=== PATIENT | male | born 1955 | race Caucasian/White ===

== ENCOUNTER 2023-07-31 02:31 | Observation (INO) ==
--- NOTE | 2023-07-31 03:04 | Emergency Department Note ---
History of Present Illness General Chief complaint: Abdominal Pain Stated complaint: LWR LFT ABDOMINAL PAIN/TENDERNESS,DISOLORED URINE Time Seen by Provider: 07/31/23 02:44 History of Present Illness Maximum Pain Intensity: 5 This 68-year-old male presents ER complaining of left lower abdominal pain tonight. no history of diverticulitis. He has a history of kidney stones but this feels different. Patient denies chest pain, dyspnea, fever, chills, flank pain, dysuria, or any other medical complaints. Home Medications Medication Instructions Recorded Confirmed Type No Known Home Medications 09/14/20 07/31/23 History Allergies Allergy/AdvReac Type Severity Reaction Status Date / Time No Known Allergies Allergy Verified 07/31/23 03:00 Past Med/Surg History Medical History (Updated 07/31/23 @ 04:36 by Humera Beverly PA-C) Cervicogenic headache currently going to PT for headaches Degenerative cervical disc Kidney stone on left side asymptomatic Jejunitis h/o High cholesterol "borderline" no meds Surgical History History of inguinal hernia repair Rt History of colonoscopy History of dental surgery Family History Brother Cardiac disorder Myocardial infarction Mother Adenocarcinoma of lung Colorectal cancer Grandmother Kidney stones Breast cancer Father Lung disease Aunt Breast cancer Other No family history of adverse response to anesthesia Denies family history of Ovarian cancer Prostate cancer Social History Smoking Status: Former smoker Second Hand Exposure: No; Do You Dip or Chew Tobacco: No; Hx Alcohol Use: No Hx Substance Use: No Preferred Language: Belgian Communication Ability: Effective Visual Impairment: No Limitations Hearing Ability: Normal Bull Bucker Required: No Beliefs That Will Affect Care: None marital status: Current Living Situation: Spouse current occupational status: employed current occupation: Electrical Engineering Feels Safe at Home: Yes Childhood Exposure to Second-Hand Smoke: Yes Diet: regular Dental Care, Regularly: Yes Physical Activity Frequency: 1-2 Times per Week Seatbelt Use: always Assistive Devices: Glasses Review of Systems A total of 10 systems reviewed and were otherwise negative Physical Exam Vital Signs Vital Signs - 24 hr 07/31/23 02:39 07/31/23 02:59 Temperature 36.5 C Temperature Source Oral Pulse Rate 70 68 Pulse Rhythm Regular Respiratory Rate 18 Blood Pressure 141/82 H Blood Pressure Mean 101 Pulse Oximetry 100 99 Oxygen Delivery Method Room Air Room Air Sepsis Recent Fever Within 48 Hours No Sepsis New/Unexplained Change in Mental Status No Sepsis Action Taken by Nursing No Action Required VITALS: Vitals are noted on the nurse's note and reviewed by myself. Vital signs stable. GENERAL: Pleasant gentleman who appears in pain, in no acute distress, nondiaphoretic, well-developed well-nourished. SKIN: Capillary reflex less than 2 seconds. HEENT: Normocephalic. PERRLA. EOMI. Nares patent. Mucous membranes moist. Neck is supple without nuchal rigidity. HEART: Regular rate and rhythm LUNGS: Clear to auscultation bilaterally without wheezes, rales or rhonchi. No retractions or accessory muscle use. ABDOMEN: Positive bowel sounds x 4. Normal tympanic percussion. Soft, tender left lower quadrant, without masses or organomegaly. Galindo sign negative. No guarding or rebound tenderness. no CVA tenderness MUSCULOSKELETAL: No gross musculoskeletal defects. NEURO: Patient was alert and oriented to person place and time. No focal neurological deficits. Course Administered Medications Discontinued Medications Sodium Chloride (Nss) 500 mls @ 999 mls/hr IV .Q31M STA Stop: 07/31/23 03:15 Last Infusion: 07/31/23 03:50 Dose: Infused Documented By: Admin: 07/31/23 03:07 Dose: 999 mls/hr Documented By: KAYLEY Acetaminophen (Ofirmev) 1,000 mg in 100 mls @ 400 mls/hr IV NOW STA Stop: 07/31/23 03:38 Last Infusion: 07/31/23 03:50 Dose: Infused Documented By: Admin: 07/31/23 03:27 Dose: 400 mls/hr Documented By: KAYLEY Ioversol (Optiray 320 500ml) 100 ml IV ONCE ONE Stop: 07/31/23 03:18 Last Admin: 07/31/23 03:18 Dose: 88 ml Documented By: ANASTASIIA Ketorolac Tromethamine (Ketorolac Tromethamine 15 Mg/Ml Vial) 10 mg IV NOW STA Stop: 07/31/23 02:46 Last Admin: 07/31/23 03:50 Dose: Not Given Documented By: [facility] Ketorolac Tromethamine (Ketorolac Tromethamine 15 Mg/Ml Vial) 10 mg IV NOW STA Stop: 07/31/23 04:33 Last Admin: 07/31/23 04:42 Dose: 10 mg Documented By: [facility] Morphine Sulfate (Morphine Sulfate 4 Mg/Ml 1 Ml Carp\\Vial) 4 mg IV NOW STA Stop: 07/31/23 02:59 Last Admin: 07/31/23 03:06 Dose: 4 mg Documented By: [facility] Morphine Sulfate (Morphine Sulfate 4 Mg/Ml 1 Ml Carp\\Vial) 4 mg IV NOW STA Stop: 07/31/23 03:25 Last Admin: 07/31/23 03:27 Dose: 4 mg Documented By: [facility] Ondansetron HCl (Ondansetron Inj 2 Mg/Ml 2 Ml Vial) 4 mg IV NOW STA Stop: 07/31/23 02:46 Last Admin: 07/31/23 03:06 Dose: 4 mg Documented By: [facility] Tamsulosin HCl (Tamsulosin Hcl 0.4 Mg Cap) 0.4 mg PO NOW ONE Stop: 07/31/23 04:33 Last Admin: 07/31/23 04:42 Dose: 0.4 mg Documented By: [facility] Medical Decision Making Medical Records Attestation: I reviewed the patient's medical records. Home Medications Current Medication List: was personally reviewed by me Laboratory Data Attestation: I reviewed the patient's lab results. 07/31/23 02:56 07/31/23 02:56 Lab Results 07/31/23 07/31/23 07/31/23 Range/Units 02:56 03:05 Unknown WBC 7.89 (4.8-10.8) K/ul RBC 4.69 L (4.70-6.10) M/uL Hgb 14.9 (14.0-18.0) g/dl POC Hgb 14.3 (14.0-18.0) g/dl Hct 43.3 (42.0-52.0) % POC Hct 42 (42-52) % MCV 92.3 (80.0-100.0) fL MCH 31.8 (25.0-34.0) pg MCHC 34.4 (32.0-36.0) g/dL RDW Std Deviation 41.6 (36.4-46.3) fL RDW Coeff of Patrick 12.2 (11.5-14.5) % Plt Count 243 (130-400) K/uL MPV 9.0 L (9.4-12.4) fL Immature Gran % (Auto) 0.3 % Neut % (Auto) 75.5 % Lymph % (Auto) 16.7 % [place] % (Auto) 5.2 % Eos % (Auto) 2.0 % Baso % (Auto) 0.3 % Neut # (Auto) 5.96 (1.40-6.50) K/uL Lymph # (Auto) 1.32 (1.20-3.40) K/uL [place] # (Auto) 0.41 (0.11-0.59) K/uL Eos # (Auto) 0.16 (0.00-0.50) K/uL Baso # (Auto) 0.02 (0.00-0.20) K/uL Immature Gran # (Auto) 0.02 (0.01-0.20) K/uL POC Sodium 140 (135-144) mmol/L Sodium 139 (136-145) mmol/L POC Potassium 4.0 (3.3-5.0) mmol/L Potassium 4.3 (3.5-5.1) mmol/L POC Chloride 101 (101-112) mmol/L Chloride 103 (98-107) mmol/L Carbon Dioxide 29 (21-32) mmol/L POC Total CO2 29 (24-31) mmol/L Anion Gap 7 (3-11) POC Anion Gap 15.0 L (16-25) mmol/L POC BUN 17 (7-18) mg/dl BUN 18 (6-23) mg/dl Creatinine 1.13 (0.6-1.4) mg/dl POC Creatinine 1.0 (0.6-1.3) mg/dl Est Cr Clr Drug Dosing 56.5 ml/min Est GFR ( Amer) 77.0 ml/min Est GFR (Non-Af Amer) 66.4 ml/min BUN/Creatinine Ratio 15.9 (10-20) Glucose 136 H (70-99(Fasting)) mg/dl POC Glucose (other) 128 H (70-99) mg/dl Lactate 1.0 (0.4-2.0) mmol/L Calcium 9.5 (8.6-10.3) mg/dl POC Ioniz Calcium Woodrow 1.17 (1.12-1.32) mmol/l Total Bilirubin 0.6 (0.2-1.0) mg/dl AST 21 (13-39) U/L ALT 15 (7-52) U/L Alkaline Phosphatase 75 (34-104) U/L Total Protein 7.3 (6.0-8.3) gm/dl Albumin 4.5 (3.4-5.0) gm/dl Globulin 2.8 (2.5-4.0) gm/dl Albumin/Globulin Ratio 1.6 (0.9-2) Lipase 32 (11-82) U/L Urine Color Yellow Urine Appearance Clear (Clear) Urine pH 7.5 (4.5-7.5) Ur Specific [place] 1.015 (1.000-1.030) Urine Protein Negative (Negative) Urine Glucose (UA) Negative (Negative) Urine Ketones Negative (Negative) Urine Blood 3+ H (Negative) Urine Nitrite Negative (Negative) Urine Bilirubin Negative (Negative) Urine Urobilinogen Negative (Negative) Ur Leukocyte Esterase Negative (Negative) Urine WBC (Auto) 0-5 (0-5) /hpf Urine RBC (Auto) >20 H (0-2) /hpf U Hyaline Cast (Auto) 0-2 (0-2) /lpf U Epithel Cells (Auto) 0-2 (0-2) /hpf Urine Bacteria (Auto) None Seen (None Seen) Imaging Data Attestation: I personally reviewed and interpreted this imaging study as follows: Radiologist's Impression: Abdomen/Pelvis CT 07/31/23 02:45 Exam(s): CT ABDOMEN + PELVIS With Contrast IV Amt: 88 ML OPTIRAY 320 EXAM: CT Abdomen and Pelvis With Intravenous Contrast CLINICAL HISTORY: Reason for exam: llq pain. TECHNIQUE: Axial computed tomography images of the abdomen and pelvis with intravenous contrast. Automated exposure control was utilized for the study. A dose lowering technique was utilized adhering to the principles of ALARA. CONTRAST: Patient received 88 ML OPTIRAY 320 of IV contrast COMPARISON: No relevant prior studies available. FINDINGS: Lung bases: Unremarkable. No mass. No consolidation. Mediastinum: Small esophageal hiatal hernia. ABDOMEN: Liver: Low attenuation focus in the liver which may be due to a cyst but is too small to characterize. Gallbladder and bile ducts: Unremarkable. No calcified stones. No ductal dilation. Pancreas: Unremarkable. No mass. No ductal dilation. Spleen: Unremarkable. No splenomegaly. Adrenals: Unremarkable. No mass. Kidneys and ureters: Obstructive 7 x 5 x 8 mm calculus within the left mid ureter (noted on maintenance advisor imaging) with upstream mild left renal hydronephrosis with perinephric and periureteral stranding. Additionally, there is a delayed left nephrogram, also likely related to obstruction. Nonobstructive calculi within the kidneys bilaterally, the largest within the inferior pole of the left kidney measuring up to 7 mm. Stomach and bowel: Colonic diverticulosis. No evidence of diverticulitis. No evidence of bowel obstruction. PELVIS: Appendix: No findings to suggest acute appendicitis. Bladder: Unremarkable. No mass. Reproductive: Unremarkable as visualized. ABDOMEN and PELVIS: Intraperitoneal space: Unremarkable. No free air. No significant fluid collection. Bones/joints: Degenerative changes in the spine. No acute fracture. No dislocation. Soft tissues: Umbilical hernia containing fat. Vasculature: Atherosclerotic disease. No abdominal aortic aneurysm. Lymph nodes: Unremarkable. No enlarged lymph nodes. IMPRESSION: 1. Obstructive 7 x 5 x 8 mm calculus within the left mid ureter (noted on maintenance advisor imaging) with upstream mild left renal hydronephrosis with perinephric and periureteral stranding. Additionally, there is a delayed left nephrogram, also likely related to obstruction. 2. Nonobstructive calculi within the kidneys bilaterally, the largest within the inferior pole of the left kidney measuring up to 7 mm. 3. No other acute findings. 4. Incidental findings as described. Electronically signed by: Zi Tristan MD 07/31/23 04:37 AM [facility] Narrative Prior records/ancillary studies reviewed. Triage Nursing notes reviewed. Additional history obtained from nursing. The patient's history was concerning for abdominal pain. Differential diagnosis: Etiologies such as appendicitis, diverticulitis, PUD, biliary pathology, UTI, pancreatitis, obstruction, mesenteric ischemia, aortic pathology, infections, inflammatory bowel disease, renal colic, as well as others were entertained. Physical examination findings: As above. ER treatment provided: An order was placed for continuous cardiac monitoring. The monitor shows a rate of 60-100 with a sinus rhythm per my Independent interpretation. Morphine, Zofran, IV fluids, Tylenol, Toradol, Flomax On reassessment the patient felt better. Diagnostics interpreted by me: The labs Independently Interpreted by myself revealed urine with hematuria without signs of infection. Mild hyperglycemia without DKA Stable H&H Imaging studies: CT as above Consultation: A consultation was placed with the hospitalist. The case was discussed and diagnostics were reviewed. The patient was evaluated in the ER for further treatment. Urology was consulted and the midlevel, Mike, did evaluate the patient. Exam and history seem consistent with left ureterolithiasis with renal colic. Patient still in severe amount of pain. He required multiple rounds of pain medication. He was given Flomax Toradol Tylenol and morphine and Zofran. He does have a rather large stone. Medicine urology were consulted. Patient be admitted to the medical service. By the evaluation outlined above emergent etiologies such as appendicitis, diverticulitis, PUD, biliary pathology, UTI, pancreatitis, obstruction, mesenteric ischemia, aortic pathology, infections, inflammatory bowel disease, as well as others were deemed relatively unlikely. The pt informed about the findings as listed above. All questions were answered and pleased with the treatment. The chart was completed utilizing [employer]It Speech voice recognition software. Grammatical errors, random word insertions, pronoun errors, and incomplete sentences are an occassional consequence of this system due to software limitations, ambient noise, and hardware issues. Any formal questions or concerns about the content, text, or information contained within the body of this dictation should be directly addressed to the physician elementary assistant teacher for clarification. Impression & Plan Ureterolithiasis, Renal colic on left side Discharge Plan Visit Data Chief Complaint: Abdominal Pain Stated Complaint: LWR LFT ABDOMINAL PAIN/TENDERNESS,DISOLORED URINE ED Provider: Shad Varghese ED Midlevel Provider: Humera Beverly Discharge Problem: Ureterolithiasis, Renal colic on left side Patient Disposition: Admitted As Inpatient Condition: Good Forms Stand Alone Forms: My Sxbbm Prescriptions Prescriptions: No Action No Known Home Medications Referrals Referrals: Salvador Rutledge DO [Primary Care Provider] -
[2023-07-31] MEDS: ONDANSETRON INJ 2 MG/ML 2 ML VIAL IV STA (03:06)
[2023-07-31] MEDS: MoRPHine SULFATE 4 MG/ML 1 ML CARP\\VIAL IV STA ×2 (03:06→03:27)
[2023-07-31] MEDS: SODIUM CHLORIDE 0.9% 500 ML IV STA (03:07)
[2023-07-31 03:18] LABS: Basophils # (auto) 0.02 K/uL (0.00-0.20); Basophils % (auto) 0.3 %; Eosinophils # (auto) 0.16 K/uL (0.00-0.50); Hematocrit (blood only) 43.3 % (42.0-52.0); Hemoglobin 14.9 g/dl (14.0-18.0); Immature Granulocytes # (auto) 0.02 K/uL (0.01-0.20); Immature Granulocytes % (auto) 0.3 %; Lymphocytes # (auto) 1.32 K/uL (1.20-3.40); Lymphocytes % (auto) 16.7 %; Mean Corpuscular Hemoglobin 31.8 pg (25.0-34.0); Mean Corpuscular Hgb Conc 34.4 g/dL (32.0-36.0); Mean Corpuscular Volume 92.3 fL (80.0-100.0); Monocytes # (auto) 0.41 K/uL (0.11-0.59); Monocytes % (auto) 5.2 %; Neutrophils # (auto) 5.96 K/uL (1.40-6.50); Neutrophils % (auto) 75.5 %; Platelet Count 243 K/uL (130-400); RDW Coefficient of Variation 12.2 % (11.5-14.5); RDW Standard Deviation 41.6 fL (36.4-46.3); Red Blood Count 4.69 M/uL (4.70-6.10); White Blood Count 7.89 K/ul (4.8-10.8)
[2023-07-31] MEDS: OPTIRAY 320 500ml IV ONE (03:18)
[2023-07-31 03:19] LABS: iSTAT Hemoglobin 14.3 g/dl (14.0-18.0); iSTAT Ionized Calcium 1.17 mmol/l (1.12-1.32)
[2023-07-31] MEDS: ACETAMINOPHEN 1,000 MG/100 ML VIAL IV STA (03:27)
[2023-07-31 03:33] LABS: Albumin Globulin Ratio 1.6 (0.9-2); Albumin Level 4.5 gm/dl (3.4-5.0); BUN Creatinine Ratio 15.9 (10-20); Bilirubin,Total 0.6 mg/dl (0.2-1.0); Calcium 9.5 mg/dl (8.6-10.3); Creatinine Clr Calc Pharmacy 56.5 ml/min; Est GFR (Non-African American) 66.4 ml/min; Globulin 2.8 gm/dl (2.5-4.0); Potassium 4.3 mmol/L (3.5-5.1); Total Protein 7.3 gm/dl (6.0-8.3)
[2023-07-31] MEDS: KETOROLAC TROMETHAMINE 15 MG/ML VIAL IV STA ×2 (03:50→04:42)
[2023-07-31 03:58] LABS: Appearance Urine Clear (Clear); Bacteria Urine Automated None Seen (None Seen); Bilirubin Urine Negative (Negative); Blood Urine 3+ (Negative); Cast Urine Automated 0-2 /lpf (0-2); Color Urine Yellow; Epithelial Cell Urine Auto 0-2 /hpf (0-2); Glucose Urine UA Negative (Negative); Ketones Urine Negative (Negative); Leukocyte Esterase Urine Negative (Negative); Nitrite Urine Negative (Negative); Protein Urine Negative (Negative); RBC Urine Automated >20 /hpf (0-2); Specific Gravity Urine 1.015 (1.000-1.030); Urobilinogen Urine Negative (Negative); WBC Urine Automated 0-5 /hpf (0-5); pH Urine 7.5 (4.5-7.5)
--- NOTE | 2023-07-31 04:38 | CT Scan Report ---
Exam(s): CT ABDOMEN + PELVIS With Contrast IV Amt: 88 ML OPTIRAY 320 EXAM: CT Abdomen and Pelvis With Intravenous Contrast CLINICAL HISTORY: Reason for exam: llq pain. TECHNIQUE: Axial computed tomography images of the abdomen and pelvis with intravenous contrast. Automated exposure control was utilized for the study. A dose lowering technique was utilized adhering to the principles of ALARA. CONTRAST: Patient received 88 ML OPTIRAY 320 of IV contrast COMPARISON: No relevant prior studies available. FINDINGS: Lung bases: Unremarkable. No mass. No consolidation. Mediastinum: Small esophageal hiatal hernia. ABDOMEN: Liver: Low attenuation focus in the liver which may be due to a cyst but is too small to characterize. Gallbladder and bile ducts: Unremarkable. No calcified stones. No ductal dilation. Pancreas: Unremarkable. No mass. No ductal dilation. Spleen: Unremarkable. No splenomegaly. Adrenals: Unremarkable. No mass. Kidneys and ureters: Obstructive 7 x 5 x 8 mm calculus within the left mid ureter (noted on producer director imaging) with upstream mild left renal hydronephrosis with perinephric and periureteral stranding. Additionally, there is a delayed left nephrogram, also likely related to obstruction. Nonobstructive calculi within the kidneys bilaterally, the largest within the inferior pole of the left kidney measuring up to 7 mm. Stomach and bowel: Colonic diverticulosis. No evidence of diverticulitis. No evidence of bowel obstruction. PELVIS: Appendix: No findings to suggest acute appendicitis. Bladder: Unremarkable. No mass. Reproductive: Unremarkable as visualized. ABDOMEN and PELVIS: Intraperitoneal space: Unremarkable. No free air. No significant fluid collection. Bones/joints: Degenerative changes in the spine. No acute fracture. No dislocation. Soft tissues: Umbilical hernia containing fat. Vasculature: Atherosclerotic disease. No abdominal aortic aneurysm. Lymph nodes: Unremarkable. No enlarged lymph nodes. IMPRESSION: 1. Obstructive 7 x 5 x 8 mm calculus within the left mid ureter (noted on producer director imaging) with upstream mild left renal hydronephrosis with perinephric and periureteral stranding. Additionally, there is a delayed left nephrogram, also likely related to obstruction. 2. Nonobstructive calculi within the kidneys bilaterally, the largest within the inferior pole of the left kidney measuring up to 7 mm. 3. No other acute findings. 4. Incidental findings as described. Electronically signed by: Zi Tristan MD 07/31/23 04:37 AM
[2023-07-31] MEDS: TAMSULOSIN HCL 0.4 MG CAP PO ONE (04:42)
--- NOTE | 2023-07-31 04:48 | Emergency Department Note ---
ED Visit Note I was consulted by the Advanced Practice Provider. I personally made/approved the management plan and take responsibility for the patient management. I performed a substantive portion of the visit. This includes the aspects of: -History/Physical -MDM .
--- NOTE | 2023-07-31 04:51 | History & Physical Report ---
Date of Service July 31, 2023 Assessment & Plan (1) Ureterolithiasis: Plan: Pt is a 68 yo male with PMH of headaches, asymptomatic nephrolithiasis, and elevated cholesterol (not on medication) presenting d/t left sided abdominal pain. Left ureterolithiasis - lab work significant for no leukocytosis, CMP WNL, lactic acid 1.0, lipase 32 - CTAP showed left obstructive mid ureter stones ([id number]) with mild hydronephrosis - UA showed 3+ blood, >20 RBCs consistent with ureterolithiasis; no signs of urine infection - urology consulted; will continue conservative management until AM team evaluation - pain control; tylenol 1000mg q8hr scheduled, toradol 15 mg q6hr PRN, dilaudid 0.5mg q4hr for 5-7/10 pain, dilaudid 1 mg q4hr for 8-10/10 pain; nausea control w/ zofran PRN - keep NPO, continue tamsulosin 0.4mg to facilitate stone passage; however, d/t size of stone, pt may require intervention which will be discussed further by urology Hx of high cholesterol - no home medications Diet: NPO until urology eval VTE ppx: will defer upon admission pending possible procedure Code: full Dispo: admit to med/surg (2) High cholesterol: History of Present Illness Chief Complaint: left sided abdominal pain Primary Care Provider: Salvador Rutledge DO Pt is a 68 yo male with PMH of headaches, asymptomatic nephrolithiasis, and elevated cholesterol (not on medication) presenting d/t left sided abdominal pain. Pt states he has a history of left sided abdominal pain dating back many years but this pain feel different in quality and location. He has known that he has kidney stones, but they have never caused his problems aside from one episode where he had acute pain and it was presumed he passed a stone (however, this was not confirmed). Pt states this current episode began Sunday morning where he felt a slight pain in this abdomen. However, he went to work as normal. He came home and noticed a blood tinge to his urine which is abnormal for him. He was able to eat dinner and decided to relax the rest of the night because he hadn't felt well all day. Last evening, his pain worsened to the point of not being able to get comfortable which prompted him to come to the ER. In the ER, pt was given 1L NS, 4 mg zofran x1, toradol 10 mg x1, morphine 4 mg IV x2, tamsulosin 0.4mg x1, and 1000mg tylenol x1. His symptoms were much improved after these medications. Allergies Allergy/AdvReac Type Severity Reaction Status Date / Time No Known Allergies Allergy Verified 07/31/23 03:00 Home Medications Medication Instructions Recorded Confirmed Type No Known Home Medications 09/14/20 07/31/23 History Past Med/Surg History Medical History (Updated 07/31/23 @ 15:24 by Palmer Pollard MD) Cervicogenic headache currently going to PT for headaches Degenerative cervical disc Kidney stone on left side asymptomatic Jejunitis h/o High cholesterol "borderline" no meds Surgical History History of inguinal hernia repair Rt History of colonoscopy History of dental surgery Family History Brother Cardiac disorder Myocardial infarction Mother Adenocarcinoma of lung Colorectal cancer Grandmother Kidney stones Breast cancer Father Lung disease Aunt Breast cancer Other No family history of adverse response to anesthesia Denies family history of Ovarian cancer Prostate cancer Social History Smoking Status: Never smoker Second Hand Exposure: No; Do You Dip or Chew Tobacco: No; Hx Alcohol Use: No Hx Substance Use: No Preferred Language: Welsh Communication Ability: Effective Visual Impairment: No Limitations Hearing Ability: Normal Wool Cleaner Required: No Beliefs That Will Affect Care: Taoism Taoism Beliefs: DENOMINATIONAL ANGLICAN marital status: Current Living Situation: Spouse current occupational status: employed current occupation: [email or web address] Feels Safe at Home: Yes Safety Concerns: Feels Safe At This Time Childhood Exposure to Second-Hand Smoke: Yes Diet: regular Dental Care, Regularly: Yes Physical Activity Frequency: 1-2 Times per Week Seatbelt Use: always Assistive Devices: Glasses Review of Systems Review of Systems: As per HPI Physical Exam Constitutional: NAD, vitals WNL. Respiratory: CTA bilaterally. Non labored breathing. No rhonchi, wheezing, or crackles. Cardiovascular: RRR. No murmurs noted. No LE edema. Gastrointestinal (Abdomen): Nontender, nondistended, +BS. No masses noted. Skin: No rashes or skin lesions noted. Neurologic: Sensation grossly intact. No FND appreciated. Psychiatric: Speech of normal pace and content. Mood and affect congruent. Results & Data Results & Data Vital Signs (Past 12 Hours) Vital Signs Temp Pulse Resp BP Pulse Ox O2 Del Method 07/31/23 02:59 68 18 99 Room Air 07/31/23 02:39 36.5 C 70 141/82 H 100 Room Air Supervising Physician Co-Signing Physician Notes Attending addendum: I have physically seen this patient, have supervised the medical residents activities, and agree with the H&P unless as otherwise noted. Assessment and Plan: Left mid ureter obstructing stone, 5 x 7 x 8 mm/mild left hydronephrosis- Follow urine culture sensitivity Empiric ceftriaxone NPO IV fluids as noted Pain medication with Tylenol, Toradol and Dilaudid as noted Zofran 4 mg IV every 6 hours as needed Tamsulosin 0.4 mg p.o. daily Consult urology Resident Activity Tracking Resident Involvement: Resident Care Provided Care Provided: Adult [facility]
--- NOTE | 2023-07-31 04:53 | Urology Consultation ---
Date of Consultation July 31, 2023 Assessment & Plan (1) Renal colic on left side: I discussed with the treating clinician emergency department the patient is being admitted on the hospitalist service. From a urologic perspective we recommend the following: Provide analgesics Provide antiemetics Provide IV fluid for hydration Flomax has been initiated for expulsive therapy and this should continue At the present time there is no leukocytosis or evidence of urinary tract infection on urinalysis and therefore antibiotics are not required at this time I discussed with the patient that with the size of his kidney stone is less likely to pass. Will monitor the patient for the present time and he will be evaluated by our [facility] urology team and a determination will be made if patient requires cystoscopy. Please keep patient n.p.o. until evaluated by [facility] urology team Additional recommendations be forthcoming based on his clinical course as it unfolds History of Present Illness Reason for Consultation: Nephrolithiasis History of Present Illness This is a 68-year-old male who presented the emergency department secondary to approximately 12 hours of left flank pain. Patient said that the pain originated in the left flank and has now began to radiate to the front of his abdomen. He has had nausea without vomiting. He denies any fevers, shakes, or chills. The patient denies any dysuria or urinary frequency but notes that he may have seen a small amount of blood in his urine. He notes that he does have a history of kidney stones in the past but has never had any procedures such as cystoscopy or lithotripsy. Since arrival to the emergency department the patient has had labs and imaging which I independently reviewed. A CT scan of the abdomen pelvis showed that he had a 7 x 5 x 8 mm kidney stone in the left mid ureter resulting in obstruction/hydronephrosis. There is some perinephric and periureteral stranding. The patient was also noted to have a nonobstructive 7 mm nonobstructive kidney stone in the left kidney. Labs included CBC her white blood cell count, hemoglobin, hematocrit, and platelet count were all normal. Chemistry profile showed sodium and potassium along with the BUN and creatinine were normal. Urinalysis did show 3+ blood but was otherwise not indicative of infection. At the time of my interview the patient was resting comfortably in bed and he was in no distress. Allergies Allergy/AdvReac Type Severity Reaction Status Date / Time No Known Allergies Allergy Verified 07/31/23 03:00 Home Medications Medication Instructions Recorded Confirmed Type No Known Home Medications 09/14/20 07/31/23 History Patient History Medical History Cervicogenic headache currently going to PT for headaches Degenerative cervical disc Kidney stone on left side asymptomatic Jejunitis h/o High cholesterol "borderline" no meds Surgical History History of inguinal hernia repair Rt History of colonoscopy History of dental surgery Family History Brother Cardiac disorder Myocardial infarction Mother Adenocarcinoma of lung Colorectal cancer Grandmother Kidney stones Breast cancer Father Lung disease Aunt Breast cancer Other No family history of adverse response to anesthesia Denies family history of Ovarian cancer Prostate cancer Social History Smoking Status: Former smoker Second Hand Exposure: No; Do You Dip or Chew Tobacco: No; Hx Alcohol Use: No Hx Substance Use: No Preferred Language: Bulgarian Communication Ability: Effective Visual Impairment: No Limitations Hearing Ability: Normal Home Management Supervisor Required: No Beliefs That Will Affect Care: None marital status: Current Living Situation: Spouse current occupational status: employed current occupation: Electrical Engineering Feels Safe at Home: Yes Childhood Exposure to Second-Hand Smoke: Yes Diet: regular Dental Care, Regularly: Yes Physical Activity Frequency: 1-2 Times per Week Seatbelt Use: always Assistive Devices: Glasses Review of Systems Constitutional: no fever and no chills Eyes: + corrective lenses Ear, Nose, Mouth, Throat: no hearing loss Respiratory: no cough and no dyspnea Cardiovascular: no chest pain Gastrointestinal: + abdominal pain (Radiating from left fl ank) and + nausea; no vomiting Genitourinary: + as per Subjective / HPI Musculoskeletal: + back pain (Left flank) Integumentary: no rash Neurologic: no localized weakness Physical Exam Constitutional: WD/WN, vitals as above Eyes: Wears glasses ENMT: Ears: no hearing impairment and no external ear abnormality Mouth: no oropharynx abnormality Neck: trachea midline Respiratory: normal respiratory effort; no respiratory distress and no labored breathing Cardiovascular: Rate/Rhythm: regular rate and regular rhythm Gastrointestinal (Abdomen): Abdomen is soft, nonrigid, nondistended. The patient did have some slight tenderness to palpation in the left hypogastric and left lower quadrants. Musculoskeletal: No calf tenderness Skin: no rashes Neurologic: moves all extremities Psychiatric: A+Ox3, euthymic affect Genitourinary: No CVA tenderness with percussion on the right side. Minimal CVA tenderness to percussion on the left Results & Data Vital Signs (Past 12 Hours) Vital Signs Temp Pulse Resp BP Pulse Ox O2 Del Method 07/31/23 02:59 68 18 99 Room Air 07/31/23 02:39 36.5 C 70 141/82 H 100 Room Air PG Care Time/CCT Total # of Minutes Spent Total Time Spent with Patient: Total time spent is greater than 50% in coordination of care (as documented) at patient's floor/unit and/or counseling patient: Coding Level of Care Code 09817 INT INP/OBS CARE 3/75MIN Diagnoses Renal colic on left side N23
[2023-07-31] MEDS ORDERED: ONDANSETRON INJ 2 MG/ML 2 ML VIAL IV PRN ×2 (05:07→13:55)
[2023-07-31] MEDS ORDERED: MELATONIN 3 MG TAB PO PRN (05:07)
[2023-07-31] MEDS ORDERED: KETOROLAC TROMETHAMINE 15 MG/ML VIAL IV PRN (06:24)
[2023-07-31] MEDS ORDERED: HYDROmorphone INJ 1 MG/ML SYRINGE IV PRN (06:24)
[2023-07-31] MEDS ORDERED: HYDROmorphone INJ 0.5 MG/0.5 ML SYR IV PRN (06:24)
[2023-07-31] MEDS: LACTATED RINGER'S 1,000 ML IV SCH (06:37)
--- NOTE | 2023-07-31 08:43 | Urology Progress Note ---
Date of Service July 31, 2023 Assessment & Plan (1) Renal colic on left side: (2) Ureterolithiasis: (3) Nephrolithiasis: Plan 68yo/M admitted with intractable flank pain secondary to an obstructing 8mm left ureteral stone - Afebrile and hemodynamically stable. - Labs today - No leukocytosis and normal renal function. - UA not suggestive of infection. - Discussed options for acute stone management with cystoscopy, stent placement, possible stone treatment. Ureteral stents were discussed as well as postoperative issues and pain management. He is aware a second procedure may be needed for stone treatment. Expected clinical course reviewed. All questions were answered. - Plan to proceed to OR today for cystoscopy, left retrograde pyelogram, left ureteral stent placement, possible ureteroscopy, laser lithotripsy/stone treatment. - Risks and benefits to be reviewed with patient by Dr. Freed. OR notified. - Keep NPO. - Continue supportive care and pain management - Will cover with IV Cipro preoperatively. - Urology will follow. Admission and Anticipated Discharge Date Admission Date: July 31, 2023 Subjective Pt examined at bedside this AM. Awake, resting in bed on arrival. No acute distress. Pain well controlled at present. Denies f/c/n/v. Voiding without issue. Denies hematuria and dysuria. Has been NPO. Review of Systems Constitutional: as per Subjective / HPI Genitourinary: + as per Subjective / HPI Physical Exam Constitutional: no acute distress Respiratory: no respiratory distress and no labored breathing Skin: No visible rashes or lesions to exposed skin areas Neurologic: moves all extremities and awake Psychiatric: A+Ox3, euthymic affect Results & Data Vital Signs (Past 12 Hours) Vital Signs Temp Pulse Pulse Resp BP BP Pulse Ox 07/31/23 07:12 36.9 C 67 18 112/70 97 07/31/23 05:46 36.9 C 77 16 135/76 97 07/31/23 02:59 68 18 99 07/31/23 02:39 36.5 C 70 141/82 H 100 O2 Del Method 07/31/23 07:12 Room Air 07/31/23 05:46 Room Air 07/31/23 02:59 Room Air 07/31/23 02:39 Room Air PG Care Time/CCT Total # of Minutes Spent Total Time Spent with Patient: Total time spent is greater than 50% in coordination of care (as documented) at patient's floor/unit and/or counseling patient: Coding Level of Care Code 39385 SUB INP/OBS CARE 2MIN Diagnoses Renal colic on left side N23 Ureterolithiasis N20.1 Nephrolithiasis N20.0
[2023-07-31] MEDS: ACETAMINOPHEN 500 MG TAB PO SCH (11:13)
[2023-07-31] MEDS ORDERED: LIDOCAINE 2% 2 ML VIAL/AMP(20MG/ML) INFIL ONE (13:43)
[2023-07-31] MEDS ORDERED: PROPOFOL IV EMULSION 10 MG/ML 20 ML VIAL IV ONE (13:43)
[2023-07-31] MEDS ORDERED: fentaNYL citrate PF 100 MCG/2 ML VIAL ONE (13:43)
[2023-07-31] MEDS ORDERED: ONDANSETRON INJ 2 MG/ML 2 ML VIAL ONE (13:43)
[2023-07-31] MEDS ORDERED: MIDAZOLAM HCL 1 MG/ML 2ML VIAL ONE (13:44)
[2023-07-31] MEDS ORDERED: PROMETHAZINE HCL 6.25 MG in SODIUM CHLORIDE 0.9% 50 ML IV PRN (13:55)
[2023-07-31] MEDS ORDERED: ePHEDrine sulfate 50 MG/ML AMP IV PRN (13:55)
[2023-07-31] MEDS ORDERED: ATROPINE SULFATE 0.1 MG/ML 10ML SYR IV PRN (13:55)
[2023-07-31] MEDS ORDERED: fentaNYL citrate PF 100 MCG/2 ML VIAL IV PRN (13:55)
[2023-07-31] MEDS: CIPROFLOXACIN / D5W 400 MG/200 ML BAG IV SCH (14:36)
--- NOTE | 2023-07-31 15:25 | Hospitalist Progress Note ---
Date of Service July 31, 2023 Assessment & Plan (1) Renal colic on left side: Plan: Due to left ureter calculus. Appreciate urology consultation and recommendations. Cystoscopy will be done today, July 30, with probable stent placement and laser lithotripsy of the stone. He remains on Flomax and IV fluids for now. (2) Hyperlipidemia: Plan: Stable. Continue current medical management Plan Hopeful discharge to home tomorrow, July 31 Admission and Anticipated Discharge Date Admission Date: July 31, 2023 Subjective Alert and oriented. No distress. Urology consultation and recommendations appreciated. He will undergo cystoscopy later today with placement of a stent and possible laser lithotripsy of the left ureter stone. Continue IV fluids and Flomax for now Review of Systems 2 Review of Systems: Constitutional-no fever or chills ENT-no blurred vision, no double vision, no epistaxis, no sore throat Respiratory-no cough, no wheezing, no shortness of breath Cardiac-no palpitations, no chest pain, no syncope GI-no nausea, vomiting, diarrhea, melena, hematochezia. Intermittent left flank pain consistent with ureteral colic -no urinary retention, no urinary incontinence, no dysuria, no hematuria Musculoskeletal-no joint pain, no muscle tenderness Skin-no bruising, no rashes, no pruritus Neuro-no isolated weakness, no paresthesia, no weakness Psych-no depression, no anxiety Physical Exam 2 Physical Exam: General-alert and oriented x3, no fever, no chills HEENT-head atraumatic and normocephalic, pupils equal and reactive to light, extraocular muscles intact Neck-no lymphadenopathy or thyromegaly, trachea midline Chest-clear to auscultation. No rales, wheezing or rhonchi Cardiac-regular rate and rhythm, normal S1 and S2 Abdomen-normal bowel sounds, nontender, no hepatosplenomegaly Extremities-no cyanosis, clubbing, or edema Neuro-cranial nerves II through XII intact, motor and sensory function within normal limits, strength symmetrical, no focal deficits Psych-normal affect, normal mood Results & Data Results & Data Vital Signs (Past 12 Hours) Vital Signs Temp Pulse Pulse Resp BP Pulse Ox O2 Del Method 07/31/23 13:20 36.8 C 70 18 121/64 98 Room Air 07/31/23 07:12 36.9 C 67 18 112/70 97 Room Air 07/31/23 05:46 36.9 C 77 16 135/76 97 Room Air Laboratory Results 07/31/23 02:56 07/31/23 02:56 PG Care Time/CCT Total # of Minutes Spent Total Time Spent with Patient: Total time spent is greater than 50% in coordination of care (as documented) at patient's floor/unit and/or counseling patient: Coding Level of Care Code 02583 SUB INP/OBS CARE 3/50MIN Diagnoses Renal colic on left side N23 Hyperlipidemia E78.5
--- NOTE | 2023-07-31 15:28 | Operative Report ---
PG Post Operative Report Pre & Post Diagnosis Operation Date: 07/31/23 07:00 Pre-Op Diagnosis: LEFT URETEROLITHIASIS Post-Op Diagnosis: LEFT URETEROLITHIASIS I identified the patient and participated in the time-out.: Yes Procedure Operation Date: 07/31/23 07:00 Actual Procedures p Cystoscopy, Left Retrograde Pyelogram, Left ureteral Stent Placement, Uretero scopy, Laser Lithotripsy Stone Treatment(Left) - Ariel Freed MD Surgeon Ariel Freed MD [employer]i Bak[employer] Clerk none Estimated Blood Loss 1 Findings Consistent with Post-Op Diagnosis Specimens Stone for chemical analysis Description of Procedure The patient was identified in the preoperative holding area, appropriate informed consents were reviewed and completed and the patient was transferred to the operative suite. Upon arrival, appropriate antibiotics and anesthesia were administered and the patient was placed in dorsal lithotomy position and prepped and draped in sterile fashion. To begin the case I passed a 21 Slovenian cystoscope with 30 degree lens visual wafer fabrication operator. Inspection revealed a healthy-appearing urethra without any strictures. His prostate is moderately enlarged and his bladder is very healthy in appearance with moderate trabeculation. I turned my attention to the left UO and cannulated with a sensor wire which advanced the kidney without difficulty. I then placed a second wire utilizing a 10 Slovenian double-lumen catheter and used a 10 Slovenian double-lumen to gently dilate the distal ureter. I exchanged the 10 Slovenian double-lumen for a 12/14 x 36 cm ureteral access sheath and I positioned it in the proximal ureter. After advancing the scope through it I immediately encountered a stone in the proximal ureter not impacted into the wall of the ureter but filling the lumen. Utilizing a 200 m fiber I was able to fragment the stone and irrigate the stone fragments out through the access sheath and passed off the table for chemical analysis. I then reentered the access sheath with the scope and advanced into the kidney. I fully formed with full renoscopy and I encountered a relatively large stone in the lower pole as well as some other small fragments. I work my way through the large stone in the lower pole as well as attempted to treat all of the small fragments to sizes that were safe for spontaneous passage. I irrigated a significant amount of the stone debris out of the kidney and other debris should be safe for spontaneous passage. I performed a careful repeat renoscopy before performing an exit ureteroscopy and simultaneously withdrawing the access sheath. There is no ureteral trauma nor any residual ureteral stones. A 6 Slovenian by 26 Demeter double-J stent was placed and the case was concluded. There were no complications. I attest to the content of the Intraoperative Record and any orders documented therein. Any exceptions are noted below.
--- NOTE | 2023-07-31 15:51 | Anesthesiology Progress Note ---
Date of Service July 31, 2023 Anesthesia Post Procedure Vital Signs Vital Signs: Temp Pulse Pulse Pulse Pulse Resp BP 07/31/23 15:40 58 L 16 07/31/23 15:30 64 16 07/31/23 15:24 36.2 C L 63 16 07/31/23 13:20 36.8 C 70 18 07/31/23 07:12 36.9 C 67 18 07/31/23 05:46 36.9 C 77 16 07/31/23 02:59 68 18 07/31/23 02:39 36.5 C 70 141/82 H BP Pulse Ox O2 Del Method O2 Flow Rate 07/31/23 15:40 103/60 100 Oxymask 5 07/31/23 15:30 121/67 100 Oxymask 5 07/31/23 15:24 105/63 99 Oxymask 5 07/31/23 13:20 121/64 98 Room Air 07/31/23 07:12 112/70 97 Room Air 07/31/23 05:46 135/76 97 Room Air 07/31/23 02:59 99 Room Air 07/31/23 02:39 100 Room Air Pain Intensity Left Lower Abdomen: Pain Intensity: 2 Transfer of Care Handoff Completed per policy Notes Mental Status: alert / awake / arousable Patient Amnestic to Procedure: Yes Nausea / Vomiting: adequately controlled Pain: adequately controlled Airway Patency, RR, SpO2: stable & adequate BP & HR: stable & adequate Hydration State: stable & adequate Anesthetic Complications: no major complications apparent
--- NOTE | 2023-07-31 20:33 | Billing Data ---
Date of Service July 31, 2023 Coding Level of Care Code 62097 INT INP/OBS CARE
[2023-08-01 07:28] LABS: BUN Creatinine Ratio 18.8 (10-20); Calcium 8.7 mg/dl (8.6-10.3); Creatinine Clr Calc Pharmacy 63.2 ml/min; Est GFR (African American) 88.2 ml/min; Est GFR (Non-African American) 76.1 ml/min; Potassium 4.2 mmol/L (3.5-5.1)
[2023-08-01 07:43] LABS: Hematocrit (blood only) 35.2 % (42.0-52.0); Hemoglobin 12.3 g/dl (14.0-18.0); Mean Corpuscular Hemoglobin 31.7 pg (25.0-34.0); Mean Corpuscular Hgb Conc 34.9 g/dL (32.0-36.0); Mean Corpuscular Volume 90.7 fL (80.0-100.0); Mean Platelet Volume 9.3 fL (9.4-12.4); Platelet Count 193 K/uL (130-400); RDW Coefficient of Variation 12.3 % (11.5-14.5); RDW Standard Deviation 40.6 fL (36.4-46.3); Red Blood Count 3.88 M/uL (4.70-6.10); White Blood Count 7.28 K/ul (4.8-10.8)
--- NOTE | 2023-08-01 07:58 | Urology Progress Note ---
Date of Service August 01, 2023 Assessment & Plan (1) Renal colic on left side: (2) Ureterolithiasis: (3) Nephrolithiasis: Plan 68yo/M admitted with intractable flank pain secondary to an obstructing 8mm left ureteral stone - POD #1 s/p Cystoscopy, Left Retrograde Pyelogram, Left ureteral Stent Placement, Ureteroscopy, Laser Lithotripsy Stone Treatment - Tolerating the stent with minimal bother. - Afebrile and hemodynamically stable. - Labs today - No leukocytosis and normal renal function. - UA not suggestive of infection. IV Cipro given preoperatively. - Okay for discharge from perspective. - Recommend d/c with course of antibiotics and tamsulosin. - Plan for outpatient follow-up for stent removal as scheduled on 08/03/2023. - Urology will sign-off. Please call with any additional questions or concerns. Admission and Anticipated Discharge Date Admission Date: July 31, 2023 Subjective Pt examined at bedside this AM. No acute distress. Eager to go home. Tolerating the stent with minimal bother. No f/c/n/v. Reports some hematuria and dysuria with voiding as expected. Review of Systems Constitutional: as per Subjective / HPI Genitourinary: + as per Subjective / HPI Physical Exam Constitutional: no acute distress Respiratory: no respiratory distress and no labored breathing Neurologic: moves all extremities and awake Psychiatric: A+Ox3, euthymic affect Results & Data Vital Signs (Past 12 Hours) Vital Signs Temp Pulse Pulse Resp BP Pulse Ox O2 Del Method 08/01/23 07:21 36.8 C 62 16 124/66 96 Room Air 08/01/23 04:00 36.8 C 68 18 125/63 98 Room Air 07/31/23 23:12 37.0 C 72 18 123/67 96 Room Air 07/31/23 21:09 36.8 C 75 18 143/72 H 96 Room Air PG Care Time/CCT Total # of Minutes Spent Total Time Spent with Patient: Total time spent is greater than 50% in coordination of care (as documented) at patient's floor/unit and/or counseling patient: Coding Level of Care Code 57950 SUB INP/OBS CARE 2/35MIN Diagnoses Renal colic on left side N23 Ureterolithiasis N20.1 Nephrolithiasis N20.0
[2023-08-01] MEDS: TAMSULOSIN HCL 0.4 MG CAP PO SCH (08:21)
--- NOTE | 2023-08-01 09:30 | Fluoroscopy Report ---
INTRAOPERATIVE RADIOGRAPH CLINICAL HISTORY: Left ureteral stent placement. Fluoro time: 9 seconds Ka,r: 1.76 mGy FINDINGS: A single spot fluoroscopic view of the left upper abdomen is correlated with abdominal CT p erformed the same day 07/31/2023. The image shows the proximal end of a left ureteral stent in appropr iate position. IMPRESSION: Intraoperative image from a left ureteral stent placement procedure as above. Electronically signed by: Nolan Benavides M.D. 08/01/2023 9:28 AM
--- NOTE | 2023-08-01 11:13 | Discharge Summary ---
Date of Service August 01, 2023 Admission HPI Per Admitting Provider Pt is a 68 yo male with PMH of headaches, asymptomatic nephrolithiasis, and elevated cholesterol (not on medication) presenting d/t left sided abdominal pain. Pt states he has a history of left sided abdominal pain dating back many years but this pain feel different in quality and location. He has known that he has kidney stones, but they have never caused his problems aside from one episode where he had acute pain and it was presumed he passed a stone (however, this was not confirmed). Pt states this current episode began Sunday morning where he felt a slight pain in this abdomen. However, he went to work as normal. He came home and noticed a blood tinge to his urine which is abnormal for him. He was able to eat dinner and decided to relax the rest of the night because he hadn't felt well all day. Last evening, his pain worsened to the point of not being able to get comfortable which prompted him to come to the ER. In the ER, pt was given 1L NS, 4 mg zofran x1, toradol 10 mg x1, morphine 4 mg IV x2, tamsulosin 0.4mg x1, and 1000mg tylenol x1. His symptoms were much improved after these medications. Principal Diagnosis Left ureter calculus and colic, mild left hydronephrosis Discharge Exam General-alert and oriented x3, no fever, no chills HEENT-head atraumatic and normocephalic, pupils equal and reactive to light, extraocular muscles intact Neck-no lymphadenopathy or thyromegaly, trachea midline Chest-clear to auscultation. No rales, wheezing or rhonchi Cardiac-regular rate and rhythm, normal S1 and S2 Abdomen-normal bowel sounds, nontender, no hepatosplenomegaly Extremities-no cyanosis, clubbing, or edema Neuro-cranial nerves II through XII intact, motor and sensory function within no rmal limits, strength symmetrical, no focal deficits Psych-normal affect, normal mood Discharge Data Allergies Allergy/AdvReac Type Severity Reaction Status Date / Time No Known Allergies Allergy Verified 07/31/23 03:00 Consultations 07/31/23 04:42 ED Decision to Admit Stat 07/31/23 05:07 Consult Urology Routine Procedures Performed Operation Date: 07/31/23 07:00 Actual Procedures p Ureteroscopy, Laser Lithotripsy Stone Treatment(Left) - Ariel Freed MD s Cystoscopy, Left Retrograde Pyelogram, Left ureteral Stent Placement,(Left) - Ariel Freed MD Ordered Studies 07/31/23 FL KUB Routine 07/31/23 02:45 CT abd pelvis IV con only Stat Hospital Course (1) Renal colic on left side: Due to left ureter calculus. Appreciate urology consultation and recommendations. Cystoscopy was completed on July 30, with stent placement and laser lithotripsy of the stone. Treated with Flomax and IV fluids while hospitalized. Will continue Flomax and Cipro at discharge. He will follow-up with urology later this week. (2) Hyperlipidemia: Stable. Continue current medical management Plan Home today, July 31 Total Time Total Time Spent Total Time Spent (In Minutes): 45-minute Discharge Plan Discharge Items Patient Disposition: Home - Self-Care Reason For Visit: LEFT URETEROLITHIASIS Discharge Diagnosis: Left ureteral calculus, left ureteral colic, mild left hydronephrosis Condition on Discharge: Good Activity: Resume your previous activity Non-emergency contact: Primary Care Provider and Urologist Call non-emergency contact if: your symptoms worsen Follow-up/Referrals: Salvador Rutledge, [Primary Care Provider] - Diet: Regular and Heart Healthy Addtl Attending Provider Instructions: Take Flomax and Cipro for 1 week Pending Studies at Discharge: No Stand-Alone Forms: My [employer], Smoking Cessation Medications and DC Order Prescriptions: New tamsulosin 0.4 mg Capsule 0.4 mg PO QAM Qty: 7 0RF ciprofloxacin HCl [Cipro] 500 mg tablet 500 mg PO BID Qty: 14 0RF No Action No Known Home Medications Discharge Orders: Discharge Order (Routine); Ordered 08/01/23 Ordered By: Palmer Pollard Admission Data Admit Date/Time: 07/31/23 05:07 Attending Provider: Palmer Pollard Admit Provider: Kimberley Garrido Primary Care Provider: Salvador Rutledge Other Providers: Aureliano Newton; Berny Nelson Coding Level of Care Code 41064 INP/OBS DISCH >30 MIN Diagnoses Renal colic on left side N23 Hyperlipidemia E78.5
[2023-08-14 15:06] LABS: Component 2 DNR; Source LEFT URETERAL
== END 2023-08-01 11:50 | disposition home or self-care (01) | DRG 661 ==
LOC: ED 02:31 → SUATTDRO 05:07 → INTOOBSV 05:07 → 3E 05:07